=== PATIENT | female | born 1960 | race Caucasian/White ===

== ENCOUNTER 2018-12-07 14:55 | Emergency (ER) | payer MEDICARE, OTHER ==
[~2018-12-07] VITALS: Ht 170.2 cm; Wt 68.0 kg
[2018-12-07] MEDS ORDERED: ONDANSETRON 4 MG/2 ML (SDV) Z0FRAN ONE (15:11)
--- NOTE | 2018-12-07 15:14 | ED Neurological Problem ---
General Stated Complaint: FALL Source: patient, family, EMS Exam Limitations: no limitations History of Present Illness Date Seen by Provider: Dec 07, 2018 Time Seen by Provider: 15:08 Initial Comments This is a 58-year-old white female presents after she apparently inadvertently fell on the ice and sustained a posterior head injury shortly prior to presentation in the emergency department. No one observed the probable fall. Upon arrival by the paramedics patient was unable to offer helpful history. She was markedly confused. She was moving 4 extremities. There was apparent soft tissue tenderness and swelling over the occiput. The patient was able walk back into the house, take a pain pill, and subsequently deteriorated precipitating her presentation to the emergency department. The patient's relates the patient has a seizure disorder. This juncture we do not know what medicines the patient is taking. On prehospital evaluation no other injuries were identified. Allergies and Home Medications Allergies Coded Allergies: No Known Drug Allergies (Unverified , 12/07/18) Patient Home Medication List Home Medication List Reviewed: Yes Review of Systems Review of Systems Constitutional: no symptoms reported Eyes: No Symptoms Reported Ears, Nose, Mouth, Throat: no symptoms reported Respiratory: no symptoms reported Cardiovascular: no symptoms reported Gastrointestinal: vomiting (patient according to the paramedics vomited a small amount of blood, approximately 20 mL.) Genitourinary: no symptoms reported Musculoskeletal: no symptoms reported Skin: no symptoms reported Psychiatric/Neurological: No Symptoms Reported Endocrine: No Symptoms Reported Hematologic/Lymphatic: No Symptoms Reported Past Cboxtfw-Gkqhzd-Gvxasl Hx Past Med/Social Hx: Reviewed Nursing Past Med/Soc Hx Physical Exam Vital Signs Vital Signs - First Documented 12/07/18 14:55 Temp 98.0 Pulse 75 Resp 16 B/P (MAP) 188/88 (121) Pulse Ox 98 O2 Delivery Room Air Capillary Refill : Height, Weight, BMI Height: '" Weight: lbs. oz. kg; BMI Method: General Appearance: WD/WN, no apparent distress HEENT: normal ENT inspection Neck: non-tender, full range of motion, supple Respiratory: lungs clear, normal breath sounds, no respiratory distress Cardiovascular: regular rate, rhythm Gastrointestinal: normal bowel sounds, non tender, soft Back: normal inspection, no CVA tenderness Extremities: normal range of motion, non-tender, normal inspection Neurologic/Psychiatric: No alert, No normal mood/affect, No oriented x 3; disoriented x 3 Crainal Nerves: normal hearing, normal speech Coordination/Gait: normal finger to nose Motor/Sensory: no motor deficit Skin: normal color, warm/dry Progress/Results/Core Measures Results/Orders Lab Results Laboratory Tests Test 12/07/18 14:55 12/07/18 15:15 Range/Units White Blood Count 4.4 4.3-11.0 10^3/uL Red Blood Count 4.13 L 4.35-5.85 10^6/uL Hemoglobin 13.0 11.5-16.0 G/DL Hematocrit 39 35-52 % Mean Corpuscular Volume 94 80-99 FL Mean Corpuscular Hemoglobin 32 25-34 PG Mean Corpuscular Hemoglobin Concent 34 32-36 G/DL Red Cell Distribution Width 12.2 10.0-14.5 % Platelet Count 233 130-400 10^3/uL Mean Platelet Volume 10.6 H 7.4-10.4 FL Neutrophils (%) (Auto) 42 42-75 % Lymphocytes (%) (Auto) 46 H 12-44 % Monocytes (%) (Auto) 10 0-12 % Eosinophils (%) (Auto) 2 0-10 % Basophils (%) (Auto) 1 0-10 % Neutrophils # (Auto) 1.9 1.8-7.8 X 10^3 Lymphocytes # (Auto) 2.0 1.0-4.0 X 10^3 Monocytes # (Auto) 0.4 0.0-1.0 X 10^3 Eosinophils # (Auto) 0.1 0.0-0.3 10^3/uL Basophils # (Auto) 0.0 0.0-0.1 10^3/uL My Orders Orders - ROSA TRUJILLO MD Ct Head/Cervical Spine Wo (12/07/18 15:05) Cbc With Automated Diff (12/07/18 15:06) Comprehensive Metabolic Panel (12/07/18 15:06) Ua Culture If Indicated (12/07/18 15:06) Protime With Inr (12/07/18 15:07) Ekg Tracing (12/07/18 15:07) Chest 1 View, Ap/Pa Only (12/07/18 15:07) Ondansetron Injection (Zofran Injectio (12/07/18 15:11) Promethazine Injection (Phenergan Injec (12/07/18 15:26) Medications Given in ED Current Medications Medications Dose Ordered Sig/Juan F Route Start Time Stop Time Status Last Admin Dose Admin Ondansetron HCl 4 mg STK-MED ONCE .ROUTE 12/07/18 15:11 12/07/18 15:16 DC 12/07/18 15:17 4 MG Promethazine HCl 25 mg STK-MED ONCE .ROUTE 12/07/18 15:26 12/07/18 15:32 DC 12/07/18 15:35 25 MG Vital Signs/I&O 12/07/18 14:55 Temp 98.0 Pulse 75 Resp 16 B/P (MAP) 188/88 (121) Pulse Ox 98 O2 Delivery Room Air Progress Progress Note : Time: 15:54 Progress Note The patient's CT of the head demonstrated a large left cerebral hemorrhage consisting of what the radiologist believes is a epidural, subdural, and intracranial hemorrhage. CT of the C-spine demonstrated degenerative changes at approximately C4-C5 but no evidence of acute fracture or dislocation. The patient's blood pressure continued to gradually increase. The patient had an episode of emesis. She was given IV Zofran and subsequently Phenergan. Dr. Schwartz, trauma surgeon at , accepted the patient in transfer. At this time we have a helicopter in transit from [place] to expedite her transfer to . Departure Impression Primary Impression: Intracranial hemorrhage on left side following injury Qualified Codes: S06.302A - Unspecified focal traumatic brain injury with loss of consciousness of 31 minutes to 59 minutes, initial encounter Disposition: 02 XFER SHT-TRM HOSP Condition: Critical Transfer Time Spoke to Accepting Phy: 15:[address] Woods, trauma surgery. Transfer Time: 15:59 Transfer Facility: Method of Transfer: ROSA Vasquez MD Dec 07, 2018 15:14
--- NOTE | 2018-12-07 15:20 | NUR ---
CALLED ER FROM CT TO ALERT DR THAT SOMETHING IS SEEN ON THE CAT SCAN.
--- NOTE | 2018-12-07 15:23 | NUR ---
DANIELLE PUT ON STANDBY.
--- NOTE | 2018-12-07 15:25 | NUR ---
[facility] RE[facility] ACCEPT.
[2018-12-07] MEDS ORDERED: PROMETHAZINE INJ 25 MG/ML (PHENERGAN) AMP ONE (15:26)
[2018-12-07 15:30] LABS: BASOPHILS % (AUTO) 1 % (0-10); EOSINOPHILS # (AUTO) 0.1 10^3/uL (0.0-0.3); EOSINOPHILS % (AUTO) 2 % (0-10); HEMATOCRIT 39 % (35-52); LYMPHOCYTES % (AUTO) 46 % (12-44); MEAN CORPUSCULAR HEMOGLOBIN 32 PG (25-34); MEAN CORPUSCULAR HGB CONC 34 G/DL (32-36); MEAN CORPUSCULAR VOLUME 94 FL (80-99); MEAN PLATELET VOLUME 10.6 FL (7.4-10.4); MONOCYTES # (AUTO) 0.4 X 10^3 (0.0-1.0); MONOCYTES % (AUTO) 10 % (0-12); NEUTROPHILS # (AUTO) 1.9 X 10^3 (1.8-7.8); NEUTROPHILS % (AUTO) 42 % (42-75); PLATELET COUNT 233 10^3/uL (130-400); RED CELL DISTRIBUTION WIDTH 12.2 % (10.0-14.5); WHITE BLOOD COUNT 4.4 10^3/uL (4.3-11.0)
--- NOTE | 2018-12-07 15:40 | NUR ---
HERE TELLING SHE WAS AWAKE AND AND TALKING TO HIM BUT CONFUSED ET WAS ABLE TO TAKE A PAIN PILL FOR HER HEAD.
--- NOTE | 2018-12-07 15:41 | Diagnostic Imaging Report ---
INDICATION: Trauma. Frontal chest obtained at 03:31 p.m. Heart is borderline in size. Mediastinal silhouette is unremarkable. The lungs are clear. There is no pneumothorax or pleural fluid. There is no overt acute bony abnormality. IMPRESSION: No acute process in the chest. Heart is borderline in size. Dictated by: Dictated on workstation # [id number]
[2018-12-07 15:43] LABS: BILIRUBIN,URINE NEGATIVE (NEGATIVE); CLARITY,URINE SLIGHTLY CLOUDY; COLOR,URINE YELLOW; GLUCOSE, URINE (UA) NEGATIVE (NEGATIVE); KETONES,URINE NEGATIVE (NEGATIVE); LEUKOCYTE ESTERASE ,URINE NEGATIVE (NEGATIVE); NITRITE,URINE NEGATIVE (NEGATIVE); PH,URINE 7 (5-9); PROTEIN,URINE 2+ (NEGATIVE); UROBILINOGEN,URINE NORMAL (NORMAL)
--- NOTE | 2018-12-07 15:43 | NUR ---
PT PULLING AT [facility]. UNABLE TO COMMUNICATE AND FOLLOW COMMANDS ET PT MUMBLES. . DR IN ROOM.
--- NOTE | 2018-12-07 15:47 | NUR ---
[facility] CALLED FOR WHO IS UPSET.
[2018-12-07 15:51] LABS: INR 0.9 (0.8-1.4); PROTHROMBIN TIME PATIENT 12.3 SEC (12.2-14.7)
--- NOTE | 2018-12-07 15:52 | NUR ---
[facility] HERE TO BE WITH PT.
[2018-12-07 15:57] LABS: ALANINE AMINOTRANSFERASE 45 U/L (0-55); ALBUMIN 4.6 GM/DL (3.2-4.5); ALKALINE PHOSPHATASE 96 U/L (40-136); BILIRUBIN,TOTAL 0.3 MG/DL (0.1-1.0); BUN/CREATININE RATIO 10; CALCIUM 9.4 MG/DL (8.5-10.1); CARBON DIOXIDE 21 MMOL/L (21-32); CHLORIDE 100 MMOL/L (98-107); CREATININE SERUM 0.89 MG/DL (0.60-1.30); GFR ESTIMATED > 60; GLUCOSE 131 MG/DL (70-105); POTASSIUM 2.9 MMOL/L (3.6-5.0); SODIUM 136 MMOL/L (135-145); TOTAL PROTEIN 7.7 GM/DL (6.4-8.2)
[2018-12-07 15:58] LABS: AMORPHOUS SEDIMENT,UR MOD AMOR PHOSPHATE /LPF; BACTERIA,URINE NEGATIVE /HPF; WBC,URINE RARE /HPF
--- NOTE | 2018-12-07 16:00 | NUR ---
WHILE I WAS ON THE PHONE WITH [facility] MATTY REPORTS PT IS STARTING TO POSTURE AND LIGHT SNOROUS RESPIRATIONS ET HE TALKED TO DR TRUJILLO ABOUT THIS.
[2018-12-07] MEDS ORDERED: cefTRIAXone 2 GM IV (ROCEPHIN) VIAL ONE (16:03)
[2018-12-07] MEDS ORDERED: WATER (STERILE) FOR INJECTION 20 ML ONE (16:04)
--- NOTE | 2018-12-07 16:05 | NUR ---
[facility] HERE.
--- NOTE | 2018-12-07 16:10 | NUR ---
DANIELLE REPORTS RIGHT PUPIL 3 ET LEFT PUPLIL 8
--- NOTE | 2018-12-07 16:11 | Diagnostic Imaging Report ---
PROCEDURE: CT head and CT cervical spine without contrast. TECHNIQUE: Multiple contiguous axial images were obtained through the brain and cervical spine without the use of intravenous contrast. Sagittal and coronal reformations through the cervical spine were then performed. INDICATION: Found down. COMPARISON: No prior studies are available for comparison. CT HEAD: There is a large extra-axial hemorrhage identified in the left posterior parietal-occipital region. This does measure to a thickness of approximately 3.7 cm. This does appear to be lentiform in shape and is most suggestive of an acute epidural hematoma. There also is acute blood located along the anterior falx as well as along the left frontal convexity, measuring to a thickness of approximately 5 mm. This is consistent with acute subdural blood. Minimal subdural blood along the posterior falx is also seen. There is significant shift of the midline from left to right by approximately 15 mm. There is a generalized sulcal effacement involving the left cerebral hemisphere. There also appears to be an area of rounded high density in the right temporal lobe, anteriorly. This measures approximately 2.4 cm in diameter. This is along the right anterior temporal convexity and most like represents an area of acute subdural blood. There is some linear high density noted along the right inferior frontal convexity suggestive of acute subarachnoid blood. There appears to be some acute subarachnoid blood along the left inferior frontal convexity as well. Coronal reconstructions demonstrate some slight widening of the lambdoid suture on the left. There is also an area of obliquely aerated lucency just cephalad to the lambdoid suture on the coronal reconstructions, suspicious for a nondepressed skull fracture. Tiny droplets of intracranial gas are present. No other definite calvarial fractures are seen. IMPRESSION: 1. Large left posterior parietal-occipital extra-axial hemorrhage. Shape is most consistent with an acute epidural hematoma. There appears to be a nondepressed skull fracture at this location as well. Significant midline shift, left to right, of 15 mm is seen. There also are regions of acute subdural blood and subarachnoid blood in both cerebral hemispheres, as described. CT CERVICAL SPINE: There is straightening of the normal cervical lordotic curvature. Multilevel degenerative disc disease is seen. There is disc space narrowing and marginal spurring. The prevertebral tissues are normal. Odontoid is intact. Tiny amounts of gas are identified in the left posterior fossa, correlating with the left skull fracture seen on CT head. IMPRESSION: Cervical spondylosis. No acute fracture is detected. Results were discussed with Dr. Sharpe of the Emergency Department prior to this dictation. Dictated by: Dictated on workstation # [id number]
[2018-12-07 16:13] VITALS: BP 185/81
[2018-12-07] MEDS ORDERED: TETANUS,DIPTH,PERTUSS P/F (BOOSTRIX) 0.5 ML VIAL IM ONE (16:13)
[2018-12-07] MEDS ORDERED: cefTRIAXone FOR IV USE 2,000 MG in WATER (STERILE) FOR INJECTION 20 ML IV ONE (16:15)
== END 2018-12-07 16:15 | disposition short-term general hospital (02) ==
LOC: EDUNIT# 14:55 → ER 14:57
DX: S06.9X0A Unspecified intracranial injury without loss of consciousness, initial encounter (principal); W00.0XXA Fall on same level due to ice and snow, initial encounter
CPT/HCPCS: 36415; 51702; 70450; 71045; 72125; 80053; 81000; 85025; 85610; 90715; 93005; 99291; 99292